=== PATIENT | female | born 1970 | race Caucasian/White ===

== ENCOUNTER 2016-09-13 05:20 | Inpatient (IN) | payer BC ==
[~2016-09-13] VITALS: Ht 167.6 cm; Wt 74.1 kg
[~2016-09-13 05:20] MED LIST: HYDR-3288 PO; MULTTAB67 PO; VITA500T PO
[2016-09-13] MEDS ORDERED: INSULIN HUMAN REGULAR 1,000 UNITS/10 ML VIAL SQ PRN (05:45)
[2016-09-13] MEDS ORDERED: METOPROLOL TARTRATE 25 MG TAB PO PRN (05:45)
[2016-09-13] MEDS ORDERED: HEPARIN SODIUM - SQ 10,000 UNITS/ML VIAL SQ SCH (06:00)
[2016-09-13] MEDS ORDERED: SODIUM CHLORID 0.9% 500 ML IV SCH (06:00)
[2016-09-13] MEDS: LACTATED RINGER'S 1000 ML IV SCH (06:00)
[2016-09-13] MEDS ORDERED: ceFAZolin 1,000 MG/NS 100 ML IV SCH ×2 (06:00)
[2016-09-13] MEDS ORDERED: BENA25TA3 PO (06:01)
[2016-09-13 06:04] VITALS: BP 103/66; PULSE 63; RESP 20; TEMP 98; O2SAT 97
[2016-09-13] MEDS ORDERED: MIDAZOLAM HCL 2 MG/2 ML VIAL ONE (07:28)
[2016-09-13] MEDS ORDERED: FAMOTIDINE 20 MG/2 ML VIAL ONE (07:28)
[2016-09-13] MEDS ORDERED: DEXAMETHASONE SOD PHOS 4 MG/ML VIAL ONE (07:28)
[2016-09-13] MEDS ORDERED: ACETAMINOPHEN 1000 MG/100 ML VIAL IV ONE (07:28)
[2016-09-13] MEDS ORDERED: LIDOCAINE 1%/EPINEPHrine 1:100,000 SOLN 50 ML VIAL INFIL ONE (08:30)
[2016-09-13] MEDS ORDERED: ceFAZolin INJ 1,000 MG VIAL IV ONE (11:33)
[2016-09-13] MEDS ORDERED: KETOROLAC TROMETHAMINE 60 MG/2 ML (IM) VIAL IM ONE (12:00)
[2016-09-13] MEDS ORDERED: ONDANSETRON HCL 4 MG/2 ML VIAL IV PUSH ONE (12:00)
[2016-09-13] MEDS ORDERED: NEOSTIGMINE 3 MG/3 ML SYR IV ONE (12:00)
[2016-09-13] MEDS ORDERED: PROPOFOL 200 MG/20 ML AMP IV ONE (12:00)
[2016-09-13] MEDS ORDERED: NORMOSOL R INJ 2,000 ML IV ONE (12:00)
[2016-09-13] MEDS ORDERED: *MEPERIDINE 25 MG INJ VIAL PERIprocedural Use ONLY ONE (12:59)
[2016-09-13] MEDS ORDERED: ONDANSETRON HCL 4 MG/2 ML VIAL IV PRN (13:00)
[2016-09-13] MEDS ORDERED: SODIUM CHLORIDE 0.9% FLUSH 5 ML FLUSH FLUSH PRN (13:00)
[2016-09-13] MEDS ORDERED: LORazepam 0.5 MG TAB PO PRN (13:00)
[2016-09-13] MEDS ORDERED: oxyCODONE/ACETAMINOPHEN 5 MG/325 MG TAB PO PRN (13:00)
[2016-09-13] MEDS ORDERED: fentaNYL CITRATE 250 MCG/5 ML AMP ONE (13:09)
[2016-09-13] MEDS ORDERED: *morphine SULFATE 8 MG/ML PERIprocedure ONLY ONE ×3 (13:10→13:34)
[2016-09-13] MEDS: D5-1/2 NS + KCL 20 MEQ INJ 1,000 ML IV SCH ×2 (13:23→20:48)
[2016-09-13] MEDS ORDERED: *HYDROmorphone PF 1 MG VIAL PERIprocedural Use ONLY ONE ×2 (13:40→14:04)
[2016-09-13] MEDS ORDERED: DO NOT ADM ANY ANTICOAGULANT DRUGS XX PRN (13:45)
[2016-09-13] MEDS ORDERED: diphenhydrAMINE HCL 25 MG CAP PO PRN (13:45)
[2016-09-13] MEDS: HYDROmorphone HCL PF 1 MG/ML VIAL IVP PRN (17:30)
[2016-09-13] MEDS: KETOROLAC TROMETHAMINE 30 MG/ML (IVP) VIAL IVP SCH ×2 (17:42→22:51)
[2016-09-13 18:20] VITALS: BP 98/58; PULSE 71; RESP 16; TEMP 96.5; O2SAT 97
[2016-09-13 20:51] VITALS: BP 98/59; PULSE 65; RESP 15; TEMP 97.7; O2SAT 97
[2016-09-13] MEDS: oxyCODONE/ACETAMINOPHEN 5 MG/325 MG TAB PO PRN (20:51)
[2016-09-13] MEDS ORDERED: SODIUM CHLORIDE 0.9% FLUSH 5 ML FLUSH FLUSH SCH (21:00)
[2016-09-13 21:27] VITALS: O2SAT 98
[2016-09-14] MEDS: HYDROmorphone HCL PF 1 MG/ML VIAL IVP PRN ×2 (00:14→06:14)
[2016-09-14 00:51] VITALS: BP 105/71; PULSE 65; RESP 15; TEMP 96.1; O2SAT 97
[2016-09-14] MEDS: LACTATED RINGER'S 1000 ML IV SCH (03:36)
[2016-09-14 04:51] VITALS: BP 98/62; PULSE 60; RESP 15; TEMP 96.8; O2SAT 95
[2016-09-14] MEDS: oxyCODONE/ACETAMINOPHEN 5 MG/325 MG TAB PO PRN ×2 (05:04→10:32)
[2016-09-14] MEDS: KETOROLAC TROMETHAMINE 30 MG/ML (IVP) VIAL IVP SCH (05:07)
[2016-09-14] MEDS: D5-1/2 NS + KCL 20 MEQ INJ 1,000 ML IV SCH (06:18)
[2016-09-14 07:10] LABS: AUTOMATED NEUTROPHIL # 9.3 TH/MM3 (1.8-7.7); BASOPHIL % 0.1 % (0.0-2.0); EOSINOPHIL % 0.1 % (0.0-4.0); HEMATOCRIT 33.3 % (35.0-46.0); HEMO FLAGS DIFF FINAL; LYMPH % 17.7 % (9.0-44.0); LYMPHOCYTE # 2.2 TH/MM3 (1.0-4.8); MEAN CELL VOLUME 90.2 FL (80.0-100.0); MEAN CORPUSCULAR HGB CONC 33.2 % (32.0-36.0); MONO % 7.9 % (0.0-8.0); NEUT % 74.2 % (16.0-70.0); PLATELET COUNT 238 TH/MM3 (150-450); RED BLOOD COUNT 3.69 MIL/MM3 (4.00-5.30); RED CELL DISTRIBUTION WIDTH 12.9 % (11.6-17.2); WHITE BLOOD COUNT 12.5 TH/MM3 (4.0-11.0)
[2016-09-14 07:32] LABS: BICARBONATE 26.2 MEQ/L (21.0-32.0); POTASSIUM 3.6 MEQ/L (3.5-5.1)
[2016-09-14] MEDS ORDERED: OXYC1TAB63 PO (07:56)
[2016-09-14 08:00] VITALS: BP 128/77; PULSE 55; RESP 16; TEMP 97; O2SAT 96
[2016-09-14] MEDS ORDERED: ESTR.9 PO (08:03)
--- NOTE | 2016-09-14 20:42 | MD ---
cc: ELBA ROBERTSON KELLY L. MD ADMISSION DATE: 09/13/2016 DISCHARGE DATE: 09/14/2016 PROCEDURE 09/13/2016 robotic laparoscopic left salpingo-oophorectomy (with resection of 13 cm left ovarian mass), robotic-assisted laparoscopic hysterectomy, right salpingo-oophorectomy, omentectomy, appendectomy, intraperitoneal biopsies. Preliminary pathology left ovarian mass ovarian tumor borderline malignant potential. Final pathology pending. HOSPITAL COURSE She did well in the first 24 hours after surgery. PHYSICAL EXAMINATION VITAL SIGNS: Afebrile, pulse 60-65, respirations 15-20, blood pressure 98-105 over 59-71, O2 saturations greater than or equal to 95%, ins and outs 4945/1165, GENERAL: Alert and oriented x3. LUNGS: Clear except for mild rales at the bases. CARDIOVASCULAR: Regular rate and rhythm. ABDOMEN: Soft. Incision is clean and dry. TREATMENT COORDINATOR: No bleeding. EXTREMITIES: Nontender. LABORATORY DATA H&H 11.1/33.3. Electrolytes essentially normal, BUN and creatinine are 4 and 0.59. ASSESSMENT Postop day #1, tolerating oral intake well. Cornelius catheter is removed, voiding pending. She has been out of bed, adequate pain control. Findings at surgery are reviewed. The preliminary pathology this lengthy discussion regarding borderline ovarian tumors versus invasive cancer. The understanding that frozen section is only a small section from a large mass except that there is a possibility that final pathology sign out may be different from the frozen section including there may be identification of invasive ovarian cancer elements. I also explained that there was no gross evidence of any abnormality beyond the ovarian tumor. The mucinous component rationale for appendectomy, staging procedures and other things were addressed reviewed, questions were asked and answered and many points reiterated as they had been discussed preoperatively. PLAN Anticipation she will meet criteria for discharge to home. Therefore discharge to home. Our office number is made available. She is to contact our office to schedule follow up in 2 weeks. Medications include prescription for Percocet given her surgical menopause status. A further discussion held regarding hormone replacement therapy and a prescription is made available for Premarin with pros, cons, risks and benefits, review of anticipated menopausal symptomatology. Activities, restrictions discussed. Questions were answered. She expressed good understanding. MD GENIE Rutherford 8:00 AM /8:34 PM
--- NOTE | 2016-09-17 08:55 | MP ---
cc: ELBA ROBERTSON KELLY L. MD DATE OF SURGERY: 09/13/2016 PREOPERATIVE DIAGNOSIS Pelvic mass. 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 PROCEDURE 1. Laparoscopy. 2. Left robotic left salpingo-oophorectomy. 3. Robotic hysterectomy. 4. Right salpingo-oophorectomy. 5. Omentectomy. 6. Appendectomy. 7. Peritoneal biopsies. SURGEON Elba Harrell SENIOR ASIC DESIGN ENGINEER [place] Greaser Operator ANESTHESIA General endotracheal. ESTIMATED BLOOD LOSS 100 cc. IV FLUIDS 2500 cc. URINE OUTPUT 600 cc. HISTORY This is a 46-year-old female found on exam and imaging to have a complex pelvic mass. She was counseled regarding options. She was seen in our office on multiple occasions and again in the pre-op holding area. Her preference is to be conservative if possible. She would like to maintain her uterus and the contralateral tube and ovary if in fact the mass is thought to be completely benign. We discussed various potential findings, invasive ovarian cancer and even borderline ovarian tumors. I explained that she is an age group where borderline ovarian tumors are at risk in which case it is recommended consideration of removing contralateral tube and ovary, hysterectomy and staging biopsies. The rationale for these steps are discussed, the pros, cons, risks and benefits, the reproductive and menopausal ramifications are reviewed and she agrees that if there is any abnormality within the ovarian mass, suggestion of a borderline tumor or malignancy, to move forward with complete hysterectomy, bilateral salpingo-oophorectomy and staging. She also understands are objective is to try to complete the surgery laparoscopically robotically but there is a potential need to convert to laparotomy and these are again compared and contrasted. Questions were answered. She expressed good understanding. FINDINGS There was an approximately 13 cm bilobed complex mass arising from and replacing the left ovary. It is wedged in the posterior cul-de-sac, but once it is lifted from the cul-de-sac there are no significant adhesions. It appears as though it may have previously been at risk for torsion. The capsule of the mass is completely intact. The uterus, right tube and ovary appear normal. There are no appreciably enlarged lymph nodes. The peritoneal surfaces are normal. The appendix grossly appears normal. The liver and diaphragm edges were smooth. Omentum, large and small bowel and adjacent mesentery appeared normal. Frozen section analysis of the left ovarian mass showed it to be at least a mucinous tumor of borderline malignant potential, although no overt evidence of invasion was seen on frozen section. DETAILS OF PROCEDURE The patient was taken to the operating room and placed in dorsal lithotomy position. After general endotracheal anesthesia was administered a timeout was undertaken. She was identified by sight recognition and hospital ID braasif, and the proposed procedure was reviewed and confirmed. She was carefully positioned in padded Michael stirrups. Her arms were padded and secured to the sides. She was further secured to the operating table with eggcrate padding and tape in an across chest over the shoulder fashion. All sites were noted to be properly aligned with no malalignments or pressure points. She was prepped in sterile fashion, draped below the waist, placed in high lithotomy position. The cervix was grasped. The uterine cavity sounded to 8 cm. The cervix was dilated. A standard VCare manipulator was inserted and secured in the usual fashion. A Cornelius catheter was placed in the bladder. She was returned to low lithotomy position. A change of sterile gloves was undertaken. We completed draping in anticipation of laparoscopy, confirmed that an orogastric airway was in the stomach on suction. With manual elevation of the abdominal wall and direct laparoscopic visualization, a 5 mm cannula was placed in the left upper abdomen. An atraumatic entry was confirmed. Carbon dioxide gas was insufflated. A 12 mm cannula was then placed in the midline above the umbilicus, an 8 mm cannula in the right upper quadrant and left lateral abdomen, and the original 5 mm cannula changed for an 8 mm cannula. Peritoneal washings were obtained for cytology. The anatomy was surveyed with findings as described above. She was placed in Trendelenburg position. Ray-Ronald sponges were placed around the root of the small bowel mesentery. The robotic system was brought into the operative field, attached in the usual fashion. Monopolar scissors, fenestrated bipolar forceps and ProGrasp manipulators were then placed in arms #1, 2 and 3 respectively, and I took my place at the surgeon's console. Left retroperitoneal dissection was carried out by opening the peritoneum lateral and parallel overlying the psoas muscle. The left ureter was identified. The left infundibulopelvic ligament was isolated. The intervening peritoneum was opened. The infundibulopelvic ligament was cauterized. On further dissection the posterior peritoneum on the left side isolated the left utero-ovarian ligament which was thoroughly cauterized and transected, and now the utero-ovarian ligament was transected thereby removing the left tube and ovary with ovarian mass. In keeping with her wishes robotic instruments were removed. The robotic system was disengaged from the operative field. I reentered bedside under sterile condition. Each of the three Ray-Ronald sponges that had been placed in the peritoneum were removed through the 12-mm cannula. Each were inspected and noted to be removed in their entirety. The fascia was extended from the 12 mm port and the skin incision was extended a little bit. A 15 mm cannula with a 15 cm EndoCatch bag was used to capture the mass, bring it up to the abdominal wall. The fluid component was drained which was mostly very thick mucinous material. The solid component was removed using tissue clamps and the bag was withdrawn. The mass was removed completely, protected within the EndoCatch bag. Under laparoscopic visualization the midline fascia was closed with interrupted 0 Vicryl sutures which tied securely, was completely airtight. The skin incision was starting to be closed with 3-0 Vicryl subcutaneous sutures. Frozen section returned showing at least borderline ovarian tumor and based on these findings, presence of borderline tumor and the possibility of invasive cancer, additional steps were indicated. The laparoscopic cannula was reinserted after the middle sutures were removed from the midline incision and the 12 mm cannula was introduced. 8 mm cannulas were reintroduced in the right and left upper quadrant and the left lateral abdomen in the previous incision sites using laparoscopic guidance. She was returned to steep Trendelenburg position. Three Ray-Ronald sponges were again placed around the root of the small bowel mesentery. The robotic system was attached, instruments introduced, and I took my place at the surgeon's console. The right round ligament was cauterized and transected. The anterior and posterior leafs of the broad ligament were opened. The right ureter was identified and the right infundibulopelvic ligament was isolated. The intervening peritoneum was opened. The infundibulopelvic ligament was isolated to the level of the pelvic brim where it was cauterized and transected. The posterior peritoneum was opened along the right side of uterus and cervix and the right vesicouterine peritoneum was dissected off the lower uterine segment and cervix. The right uterine vessels were skeletonized, cauterized and transected as were the cardinal, paracervical and uterosacral ligaments. Attention was directed again to the left side. The left round ligament was cauterized and transected. Further dissection allowed dissection of the vesicouterine peritoneum off the left lower uterine segment and cervix. The left posterior peritoneum was further dissected. The uterine vessels were skeletonized, cauterized and transected as were the cardinal, paracervical and uterosacral ligaments. Circumferential colpotomy was performed the cervix from the upper vagina and the uterus was brought down into the vagina to assist in maintaining pneumoperitoneum. Random peritoneal biopsies obtained from the pelvis and the abdomen were collected in the pelvis and were removed laparoscopically. Next, the infracolic omentum was isolated, grasped on its distal edge and pulled toward the pelvis, and attention was directed to omentectomy. Starting at the hepatic edge the nonvascular attachments were taken down with sharp dissection. The vascular attachments were isolated, cauterized with bipolar cautery and transected. This dissection was continued parallel to and below the transverse colon toward the splenic flexure where vascular attachments were isolated, cauterized and transected until the infracolic omentum which grossly appeared normal had been removed. Given the mucinous nature of this tumor in the possible association between mucinous tumors of the appendix and the ovary, attention was directed toward the appendix. The mesoappendix was isolated, cauterized and transected. The appendix was isolated to its base arising from the cecum. A crush tashi was placed across the base of the appendix. Instruments 1 and 3 were exchanged for needle drivers as segments of 0 silk were introduced. 0 silk suture was used and tied securely around the base of the appendix and a few millimeters distal to this a second 0 silk suture was tied securely around the base of the appendix. A third 0 silk suture was placed approximately a centimeter distal and the appendix was transected with sharp dissection and focal cautery. The appendix was now removed by delivering the uterus from the pelvis and an EndoCatch bag was introduced. The appendix was captured in the EndoCatch bag and removed transvaginally. Instruments used were exchanged. Now a ring forceps was introduced into the vagina to remove the omentum. Each of the three Ray-Ronald sponges that were present in the peritoneum were removed. Each were inspected and noted to be removed in their entirety. New needle drivers were reintroduced. 0 Vicryl suture was introduced and the vaginal cuff was closed starting at the left corner, full-thickness closure including the posterior peritoneum and edge of the uterosacral ligament tied via instrument tie. The closure was held on continuous countertraction as a full-thickness running closure was carried across the vaginal cuff to the contralateral corner where it was similarly fixed, secured and tied via instrument tie. The needle was cut and removed. The pelvis was thoroughly irrigated. Small bleeders were rendered hemostatic with bipolar cautery. The integrity of the bladder was confirmed by filling the bladder with saline dyed with methylene blue. It distended nicely under pressure. No weak spots, no extravasation of dye, good margin between the vaginal cuff suture line and the edge of the bladder and good peristalsis of the ureters bilaterally, and the bladder was drained. There were no remaining foreign objects in the peritoneal cavity. It was felt that all reasonable surgical objectives had been completed. The robotic instruments were removed. The robotic system was disengaged from the operative field. I reentered the bedside under sterile condition. Under laparoscopic visualization the midline incision was closed with interrupted 0 Vicryl sutures using a needle pass apparatus and tied securely. The fascia was airtight and hemostatic. The remaining cannulas were withdrawn. Carbon dioxide gas was removed from the peritoneal cavity and 3-0 Vicryl subcutaneous, 3-0 Vicryl subcuticular and Steri-Strips were used to close these incisions. She was returned to dorsal lithotomy position. Pelvic exam confirmed the vaginal cuff was well-supported and hemostatic. There were no remaining foreign objects in the vagina. Preliminary and final counts were correct. She was returned to dorsal supine position and pending reversal of anesthesia when I left the operating room to precede her to the post-anesthesia care unit. MD TATO Rutherford/MAURISIO /7:45 AM /8:09 AM
[2017-01-03] MEDS ORDERED: ESTR1 PO (21:53)
[2017-01-04] MEDS ORDERED: HYDR-3288 PO (08:14)
[2017-01-18] MEDS ORDERED: TEMA30CA PO (07:25)
[2017-02-05] MEDS ORDERED: DIPH25CA PO (14:10)
[2017-02-14] MEDS ORDERED: HYDR-3288 PO (06:57)
== END 2016-09-14 10:53 | disposition home or self-care (01) | DRG 738 ==
LOC: HSDC 05:20 → HSDI 12:51 → HOCB 18:18
PROVIDERS: ADMIT Obstetrics & Gynecology Gynecologic Oncology; ATTEND Obstetrics & Gynecology Gynecologic Oncology
PROC: 0UT74ZZ Resection of Bilateral Fallopian Tubes, Percutaneous Endoscopic Approach (ICD-10-PCS; 2016-09-13)
PROC: 0UT94ZZ Resection of Uterus, Percutaneous Endoscopic Approach (ICD-10-PCS; 2016-09-13)
PROC: 0UTC4ZZ Resection of Cervix, Percutaneous Endoscopic Approach (ICD-10-PCS; 2016-09-13)
PROC: 0DBS4ZZ (ICD-10-PCS; 2016-09-13)
PROC: 0DTJ4ZZ Resection of Appendix, Percutaneous Endoscopic Approach (ICD-10-PCS; 2016-09-13)
PROC: 8E0W4CZ Robotic Assisted Procedure of Trunk Region, Percutaneous Endoscopic Approach (ICD-10-PCS; 2016-09-13)
PROC: 0DBW4ZX Excision of Peritoneum, Percutaneous Endoscopic Approach, Diagnostic (ICD-10-PCS; 2016-09-13)
PROC: 0UT24ZZ Resection of Bilateral Ovaries, Percutaneous Endoscopic Approach (ICD-10-PCS; principal; 2016-09-13 07:38)
DX: D39.12 Neoplasm of uncertain behavior of left ovary (principal); Z87.891 Personal history of nicotine dependence
CPT/HCPCS: 80048; 85025; 86304; 86850; 86900; 86901; 88304; 88305; 88307; 88331; 94150; J0131; J0690; J1100; J1170; J1644; J1885; J2175; J2250; J2270; J2405; J2710; J3010; J3480; J7120

== ENCOUNTER 2017-01-01 10:50 | Emergency (ER) | payer BC ==
[~2017-01-01] VITALS: Ht 167.6 cm; Wt 68.0 kg
[~2017-01-01 10:50] MED LIST changes: +BENA25TA3 PO; +ESTR.9 PO; -HYDR-3288 PO; +OXYC1TAB63 PO
[2017-01-01 10:51] VITALS: BP 142/89; PULSE 87; RESP 17; TEMP 98.2; O2SAT 99
[2017-01-01] MEDS ORDERED: ESTRODIAL PO (11:03)
[2017-01-01] MEDS ORDERED: OXYC1TAB35 PO (11:03)
[2017-01-01] MEDS ORDERED: DEXAMETHASONE SOD PHOS 20 MG/5 ML VIAL IM ONE (11:30)
--- NOTE | 2017-01-01 11:31 | PD ---
HPI Chief Complaint: Pain: Acute or Chronic Time Seen by Provider: 11:31 Travel History International Travel<30 days: No Contact w/Intl Traveler<30days: No Traveled to known affect area: No History of Present Illness HPI 46-year-old female with history of back pain, radiculopathy with with chronic right heel numbness, presents to the emergency department for evaluation of right foot pain, 8 out of 10, constant with mild edema. Patient states that she worked out in the yard yesterday and today she is having significant pain in the plantar medial aspect of the right foot. It does extend to the dorsal aspect in encompasses most of the MCP joint. Pain is exacerbated with movement. Sensation is not acutely altered. Patient states she has had this pain in the past, mostly at night but it seems to resolve likely on its own. It has never lasted this long. Denies fever or chills. Denies injury. Denies history of IV drug use. Patient is undergoing a procedure for pain control this Saturday for her back and is not able to have NSAIDs at this time. She denies any other symptoms. PFSH Past Medical History Cancer: No Cardiovascular Problems: No Diabetes: No Endocrine: No Genitourinary: No Hepatitis: No Hiatal Hernia: No Immune Disorder: No Musculoskeletal: Yes (CHRONIC BACK PAIN;ARTHRITIS;SCIATICA) Neurologic: No Psychiatric: No Reproductive: Yes (OVARIAN MASS ) Respiratory: No Thyroid Disease: No Tetanus Vaccination: > 5 Years Influenza Vaccination: Yes ?: Not : 1 Past Surgical History Surgical History: No Previous Surgery AICD: No Hysterectomy: Yes (FULL) Joint Replacement: No Pacemaker: No Other Surgery: No (COLONOSCOPY ONLY) Social History Alcohol Use: Yes (OCC) Tobacco Use: No Substance Use: No Allergies-Medications (Allergen,Severity, Reaction): Coded Allergies: No Known Allergies (Unverified , 01/01/17) Reported Meds & Prescriptions Reported Meds & Active Scripts Active Acyclovir 800 Mg Tab 800 Mg PO 5 TIMES A DAY 7 Days Medrol Dosepak (Methylprednisolone) 4 Mg Dspk 4 Mg PO DIRECTED Per Pharmacist direction Reported [Estrodial] 1 Mg PO DAILYHS Oxycodone-Acetaminophen 7.5-325 mg Tab 1 Tab PO Q12HR PRN Benadryl Allergy (Diphenhydramine HCl) 25 Mg Tab 25 Mg PO Q6H PRN Review of Systems Except as stated in HPI: all other systems reviewed are Neg Physical Exam Narrative GENERAL: Well-nourished, well-developed female patient in no acute distress SKIN: Focused skin assessment warm/dry. Mild erythema on the dorsal medial aspect of the right foot. No fluctuance. No induration. HEAD: Normocephalic. EYES: No scleral icterus. No injection or drainage. NECK: Supple, trachea midline. No JVD or lymphadenopathy. CARDIOVASCULAR: Regular rate and rhythm without murmurs, gallops, or rubs. RESPIRATORY: Breath sounds equal bilaterally. No accessory muscle use. GASTROINTESTINAL: Abdomen soft, non-tender, nondistended. MUSCULOSKELETAL: No cyanosis. Very of mild distal dorsal edema of the right foot. Distal pulses are palpable. Cap refills within normal limits. Significant tenderness to palpation of the MTP joint of the great toe BACK: Nontender without obvious deformity. No CVA tenderness. Data Data Last Documented VS Vital Signs Date Time Temp Pulse Resp B/P Pulse Ox O2 Delivery O2 Flow Rate FiO2 01/01/17 10:51 98.2 87 17 142/89 99 Orders Foot, Complete ([id number]) (01/01/17 ) Dexamethasone Inj (Decadron Inj) (01/01/17 11:30) MDM Medical Decision Making Medical Screen Exam Complete: Yes Emergency Medical Condition: Yes Medical Record Reviewed: Yes Differential Diagnosis Gout versus pseudogout versus plantar fasciitis versus stress fracture versus shingles versus septic joint Narrative Course 46-year-old female presents to the emergency department for evaluation of right foot pain. Patient appears without distress. I discussed the patient with my attending physician who also assessed the patient. Her vital signs are stable. She has been afebrile. She has no history of IV drug abuse. This is unlikely a septic joint. However warning signs of this has been discussed. X- ray imaging is without acute bony abnormality. Patient will be treated for possible gout as well as possible shingles due to the dermatomal is to be abrasion of the erythema on the dorsal medial aspect of the right foot. She agrees to return immediately with any acute worsening of symptoms. Diagnosis Primary Impression: Foot pain, right Referrals: Project Mgr Primary Care Physician Patient Instructions: Acute Gouty Arthritis (ED), General Instructions, Shingles (ED) Additional Instructions: Ice and elevate the affected foot to reduce. Cy wrap for comfort Continue pain medication as prescribed as needed for pain Follow-up with primary care provider Return immediately with any acute worsening of symptoms Med/Other Pt SpecificInfo: Prescription(s) given Scripts Acyclovir 800 Mg [id number] Mg PO 5 TIMES A DAY 7 Days Ref 0 Prov:Lupe Kemp 01/01/17 Methylprednisolone Dosepak (Medrol Dosepak)4 Mg Dspk4 Mg PO DIRECTED #1 DSPK Ref 0 Per Pharmacist direction Prov:Lupe Kemp 01/01/17 Disposition: 01 DISCHARGE HOME Condition: Stable Lupe Kemp Jan 01, 2017 11:31
--- NOTE | 2017-01-01 12:06 | RADRPT ---
EXAM DATE/TIME: 01/01/2017 11:39 [facility] COMPARISON: No previous studies available for comparison. INDICATIONS : Right foot pain, no trauma. MEDICAL HISTORY : Smoker. SURGICAL HISTORY : None. ENCOUNTER: Initial ACUITY: 1 day PAIN SCORE: 9/10 LOCATION: Right medial foot. FINDINGS: Three view examination of the right foot demonstrates no soft tissue swelling, dislocation, or fractu re. The tarsal bones appear intact. The interphalangeal and metatarsophalangeal joints are intact. The calcaneus is intact. Bony mineralization is normal. CONCLUSION: Negative exam. Rick Golden MD on January 01, 2017 at 12:04 Board Certified Radiologist. This report was verified electronically.
[2017-01-01] MEDS ORDERED: ACYC800T PO (12:19)
[2017-01-01] MEDS ORDERED: MEDR4PAK PO (12:19)
[2017-01-03] MEDS ORDERED: ESTR1 PO (21:53)
[2017-01-04] MEDS ORDERED: HYDR-3288 PO (08:14)
[2017-01-18] MEDS ORDERED: TEMA30CA PO (07:25)
[2017-02-05] MEDS ORDERED: DIPH25CA PO (14:10)
[2017-02-14] MEDS ORDERED: HYDR-3288 PO (06:57)
== END 2017-01-01 12:29 | disposition home or self-care (01) ==
LOC: NEPD 10:50
DX: M79.671 Pain in right foot (principal)
CPT/HCPCS: 73630; 96372; 99283; J1100

== ENCOUNTER → 2017-01-04 | Day surgery (SDC) | payer BC ==
[~2017-01-04] MED LIST changes: +ACYC800T PO; +DIPH25CA PO; -ESTR.9 PO; +ESTR1 PO; +HYDR-3288 PO; +IOHEXOL 180 MG/ML 20 ML VIAL (for RAD DIAG) EPIDURAL ONE; +LIDOCAINE HCL PF 2% VIAL ONE; +MEDR4PAK PO; -MULTTAB67 PO; +OXYC1TAB35 PO; -OXYC1TAB63 PO; +PROPOFOL 200 MG/20 ML AMP IV ONE; +TEMA30CA PO; +TRIAMCINOLONE ACETONIDE 40 MG/ML VIAL NERV BLOCK ONE; -VITA500T PO
--- NOTE | 2017-01-07 13:41 | M6 ---
cc: BARTOLO VILLASENOR M.D. DATE: 01/04/2017 DATE OF : 1970 PROCEDURE Fluoroscopically guided right S1 transforaminal nerve root injection. PROCEDURE NOTE History and physical was completed and signed. Consent was signed. Procedure site was marked. Medications were listed and reconciled. Pain score was recorded. Allergies were noted. Timeout was taken. Fluoroscopy time was recorded where applicable. Sedation was administered or directed by Dr. Villasenor. The patient was given oxygen. The patient was monitored by a registered nurse. Total procedure time was greater than 15 minutes. An IV was started, blood pressure cuff, pulse oximeter and EKG were applied. The patient was placed in the prone position on a Ezequiel table, sedated with small amounts of propofol titrated to effect. Vital signs were monitored and remained stable throughout the procedure. The sacral area was prepped with alcohol and 10% Betadine solution, draped with sterile drapes. Fluoroscopy was used to visualize the right S1 neural foramen. A 3-1/2 inch, 22-gauge Chiba needle was advanced into the neural foramen. Omnipaque dye was injected and seen to clearly outline the S1 nerve root. Then the patient was given 1.5 mL of 2% lidocaine, 60 mg of Kenalog directly on the nerve. Following this the patient was taken to the recovery room with stable vital signs, neurologically intact. She will be evaluated immediately and with follow-up to determine if she has a subjective decrease in her usual pain and a corresponding objective increase in her functional capabilities. W. MD KAITLYNN Hodgson/MAURISIO /8:48 AM /1:33 PM
== END | disposition home or self-care (01) ==
LOC: PHSDC 07:28
PROVIDERS: ATTEND Pain Medicine Interventional Pain Medicine
DX: M54.5 Low back pain (principal); M79.604 Pain in right leg
CPT/HCPCS: 64483; 99152; J3301; Q9965

== ENCOUNTER → 2017-01-18 | Day surgery (SDC) | payer BC ==
[~2017-01-18] MED LIST changes: -ACYC800T PO; +BUPIVACAINE HCL PF 0.75% 30 ML VIAL ONE; +LIDOCAINE HCL 1% 30 ML VIAL INFIL ONE; -LIDOCAINE HCL PF 2% VIAL ONE; -MEDR4PAK PO; -OXYC1TAB35 PO; +TRIAMCINOLONE ACETONIDE 40 MG/ML VIAL I-LESIONAL ONE; -TRIAMCINOLONE ACETONIDE 40 MG/ML VIAL NERV BLOCK ONE
--- NOTE | 2017-01-21 05:47 | M6 ---
cc: BARTOLO VILLASENOR M.D. DATE 01/18/2017 DATE OF 1970 PROCEDURE Fluoroscopically guided intradiscal injection, L5-S1. History and physical was completed and signed. Consent was signed. Procedure site was marked. Medications were listed and reconciled. Pain score was recorded. Allergies were noted. Time out was taken. Fluoroscopy time was recorded where applicable. Sedation was administered or directed by Dr. Villasenor. The patient was given oxygen. The patient was monitored by a registered nurse. Total procedure time was greater than 15 minutes. PROCEDURE NOTE IV was started. Blood pressure cuff, pulse oximeter and EKG were applied. The patient was placed in the prone position on a Ezequiel table, sedated with small amounts of propofol titrated to effect. Vital signs were monitored and remained stable throughout the procedure. The lumbar area was prepped with alcohol and 10% Betadine solution, draped with sterile drapes. Fluoroscopy was used in a slightly oblique angle to clearly visualize the L5-S1 disk. Then the skin was infiltrated with 1% Xylocaine using a 27-gauge needle. Then a 16-gauge introducer needle was placed and then 6-inch 22-gauge spinal needle was advanced through the introducer needle just inferior to the superior articular process of S1, into the disc itself. 1 mL of Omnipaque dye was injected and seen to fill the nucleus pulposus. There was also small leak through the annulus and at this point the patient was given 1 mL of Marcaine 0.75% with 20 mg of Kenalog. The needles were removed intact and the patient was taken to the recovery room with stable vital signs, neurologically intact. We will evaluate the patient immediately and with followup to determine if she has a subjective decrease in her usual pain and a corresponding objective increase in her functional capabilities. W. MD KAITLYNN Hodgson/MOLLY /8:44 AM /5:44 AM
== END | disposition home or self-care (01) ==
LOC: PHSDC 06:59
PROVIDERS: ATTEND Pain Medicine Interventional Pain Medicine
DX: M54.5 Low back pain (principal); M79.661 Pain in right lower leg
CPT/HCPCS: 62290; 99152; J3301; Q9965

== ENCOUNTER → 2017-03-14 | Day surgery (SDC) | payer BC ==
--- NOTE | 2017-03-13 14:39 | MH ---
cc: CATRACHO SANTOS DATE OF ADMISSION: 03/14/2017 ADMISSION DIAGNOSIS Herniated nucleus pulposus lumbar spine. HISTORY OF PRESENT ILLNESS This is a 46-year-old female who has had ongoing back symptoms since July 2015. She does not recall any specific injury. The patient began having increasing pain and been followed by Dr. Nakita Culp. The patient had MRI scan at [facility]. That study showed evidence of a disk herniation and there was some consideration of considering surgical treatment. The patient has had a year of conservative care including epidural steroid injections but still has significant radiating right leg pain with evidence of S1 radiculopathy. She now presents for surgical treatment. PAST MEDICAL HISTORY/SOCIAL HISTORY/FAMILY HISTORY/REVIEW OF SYSTEMS See attached notes. PHYSICAL EXAMINATION VITAL SIGNS: 5 feet 6 inches, 151 pounds, BMI of 24.4, blood pressure 133/76. HEENT: Normocephalic, atraumatic. Pupils equal, round, reactive to light and accommodation. Extraocular motions intact. NECK: Supple. CHEST: Chest is clear. HEART: Regular rate and rhythm. ABDOMEN: Soft, nontender, normoactive bowel sounds. MUSCULOSKELETAL: Ootjrkxm-vsu-zuahg is positive on the right, negative on the left. Motor examination: Right gastroc-soleus is 4/5. There is sensation decreased lateral border of the foot and bottom of the foot. Eetckxva-uhg-bgysw is positive at 60 degrees in the sitting and supine position. INVESTIGATIVE STUDIES Shows evidence of a disk herniation eccentric to right L5-S1. A repeat MRI scan from 03/13/2017 shows diskogenic changes L4-5 and L5-S1. At L4-5 there is mild to moderate bilateral lateral recess stenosis. At L5-S1 there is still significant compression upon the crossing right S1 nerve root with discoloration of that nerve root which is likely from scar tissue. IMPRESSION 1. Herniated nucleus pulposus L5-S1, right. 2. Right S1 radiculopathy. PLAN Lumbar laminectomy right L5, S1, lateral recess decompression, exploration of the right S1 nerve root, resection herniated nucleus pulposus, use of dilation port and microscope. CONSENT There are risks with surgery including infection, bleeding, loss of motion, continued pain, need for further surgery, neurologic vascular injury, the patient understands these risks and wishes to press on with surgery as outlined above. Catracho MD HÉCTOR Andrews/TLL /1:59 PM /2:20 PM
[~2017-03-14] VITALS: Ht 167.6 cm; Wt 69.3 kg
[~2017-03-14] MED LIST changes: +*morphine SULFATE 8 MG/ML PERIprocedure ONLY ONE; +ACETAMINOPHEN/HYDROcodone 325 MG/7.5 MG TAB PO PRN; -BENA25TA3 PO; +BETAMETHASONE SOD PHOS/ACETATE SUSP 30 MG/5 ML VIAL OTHER ONE; -BUPIVACAINE HCL PF 0.75% 30 ML VIAL ONE; +BUPIVACAINE/EPINEPHRINE 0.5% 50 ML VIAL ONE; +CHLORHEXIDINE GLUCONATE 2 % 1 PACK (2 CLOTHS) TOPICAL PRN; +DEXAMETHASONE SOD PHOS 4 MG/ML VIAL ONE; -DIPH25CA PO; +DO NOT ADM ANY ANTICOAGULANT DRUGS PRN; +FAMOTIDINE 20 MG/2 ML VIAL ONE; +GELATIN 12 MM/7 MM FOAM ONE; +GENTAMICIN SULFATE 80 MG/2 ML VIAL ONE; -HYDR-3288 PO; +HYDR-3366 PO; +INSULIN HUMAN REGULAR 1,000 UNITS/10 ML VIAL SQ PRN; -IOHEXOL 180 MG/ML 20 ML VIAL (for RAD DIAG) EPIDURAL ONE; +KETOROLAC TROMETHAMINE 30 MG/ML (IVP) VIAL IV PUSH ONE; +LACTATED RINGER'S 1000 ML INJ 1,000 ML IV ONE; +LACTATED RINGER'S 1000 ML IV PRN; -LIDOCAINE HCL 1% 30 ML VIAL INFIL ONE; +METOPROLOL TARTRATE 25 MG TAB PO PRN; +MIDAZOLAM HCL 2 MG/2 ML VIAL ONE; +MORPHINE SULFATE 4 MG/ML INJ IV PRN; +NEOSTIGMINE 3 MG/3 ML SYR IV ONE; +ONDANSETRON HCL 4 MG/2 ML VIAL IV PUSH ONE; +POVIDONE IODINE 5% (ANTISEPSIS KIT) 4 APPLICATIONS EACH NARE PRN; +POVIDONE IODINE 7.5% SCRUB 118 ML BOTTLE TOPICAL SCH; +SODIUM CHLORID 0.9% 500 ML IV PRN; -TEMA30CA PO; -TRIAMCINOLONE ACETONIDE 40 MG/ML VIAL I-LESIONAL ONE; +ceFAZolin 2 GM PREMIX 50 ML IV SCH; +fentaNYL CITRATE 250 MCG/5 ML AMP ONE
[2017-03-14 06:19] VITALS: BP 102/62; PULSE 58; RESP 16; TEMP 97; O2SAT 98
--- NOTE | 2017-03-14 09:08 | PD.OP ---
cc: Tavo Ballesteros. Operative Report Date of Surgery: Mar 14, 2017 Preoperative Diagnosis: Herniated nucleus pulposus L5-S1, right. Right S1 radiculopathy. Lumbar spinal stenosis Postoperative Diagnosis: Same. 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 Lysis of epidural cicatrix. Use of dilation port and microscope Anesthesia: Gen. Surgeon: Tavo Ballesteros Forging Engineer(s): PRAVIN Bueno Operation and Findings: EBL: Minimal cc INDICATION: This patient is a 46-year-old female with significant back right hip and leg pain. The patient's been treated conservatively for over a year for sequestered disc herniation to the right at L5-S1. She now presents for surgical treatment. NOTE: Joanie Bueno PA-C was present for the entire surgical procedure as my blood bank assistant. In my medical opinion her skill and care was necessary for the proper management of this patient. PROCEDURE: The patient was brought to the operating room and anesthetized in the supine position. The patient was rolled to a prone position on a Jermaine frame on a Ezequiel table. All pressure points were protected in the back was scrubbed with alcohol followed by Hibiclens followed by ChloraPrep and draped sterilely. A timeout was done and antibiotics were given. AP and lateral radiographic images were used to identify the proper levels and perform skin markings. We started from the right side at the 5 S1 level. A paramedian incision was made and an off-midline fascial incision was made. A dilating system was placed down to the interlaminar space and held provisionally to the side of the table. The microscope was brought into the field. A high-speed bur under the microscope was used to perform a dominantly right-sided laminectomy from that side. A lateral recess decompression was accomplished using straight and angled Kerrison punches. A partial medial facetectomy was accomplished. The crossing and exiting nerve roots were completely decompressed. There was calcification of the sequestered fragment below the disc space. There was some discoloration to the S1 nerve root. There was a firmness within the nerve root sheath itself not consistent with a sequestered fragment but consistent with significant intradural adhesion. There was significant epidural cicatrix that involved the S1 nerve root at the disc space and extending below the disc space. The calcified disc was impacted. The portion that was removed. There was no nerve root compression as we followed it all the way around the lower edge of the S1 pedicle ensuring that there was no evidence of a disc fragment beneath the nerve root extending below the disc space further. The wound was irrigated copiously. A small piece of Gelfoam with Celestone was placed into the epidural space. Hemostasis was controlled. The deep fascia was approximated with interrupted 0 Vicryl suture subcutaneous suture with 2-0 Vicryl suture and skin with running intradermal 3-0 Vicryl followed by Dermabond. A field block with local anesthesia was utilized. A sterile dressing was applied. The sponge count and needle counts and instrument counts were all correct. The patient tolerated the procedure well as taken to the recovery room in satisfactory condition. FINDINGS: There was significant scarring of the right S1 nerve root. There was a sequestered fragment just below the disc space. That fragment was removed. 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 No complication was noted. Tavo Ballesteros MD Mar 14, 2017 09:08
[2017-03-14 11:20] VITALS: BP 132/75; PULSE 53; RESP 16; TEMP 96.3; O2SAT 100
--- NOTE | 2017-03-14 13:34 | RADRPT ---
EXAM DATE/TIME: 03/14/2017 08:17 [facility] COMPARISON: No previous studies available for comparison. INDICATIONS : L5-S1 Laminectomy. MEDICAL HISTORY : None. SURGICAL HISTORY : None. ENCOUNTER: Initial ACUITY: 1 day PAIN SCORE: Non-responsive. LOCATION: Lumbar spine. FINDINGS: Single lateral view lumbar spine demonstrates a localization device posteriorly at the last disc spac e level which I assume is L5-S1. CONCLUSION: Localization at the last disc space level. Prabhu Winchester MD on March 14, 2017 at 13:31 Board Certified Radiologist. This report was verified electronically.
== END | disposition home or self-care (01) ==
LOC: HSDC 05:29
PROVIDERS: ATTEND Orthopaedic Surgery Orthopaedic Surgery of the Spine
DX: M51.27 Other intervertebral disc displacement, lumbosacral region (principal); M51.17 Intervertebral disc disorders with radiculopathy, lumbosacral region; M48.06 Spinal stenosis, lumbar region; M79.661 Pain in right lower leg; M54.18 Radiculopathy, sacral and sacrococcygeal region
CPT/HCPCS: 00630; 63030; 72020; 76000; J0690; J0702; J1100; J1580; J1885; J2250; J2270; J2405; J2710; J3010; J7120